=== PATIENT | female | born 1955 ===

== ENCOUNTER 2017-12-25 18:37 | Emergency (ER) | payer BC, OTHER, SELFPAY ==
[2017-12-25 18:37] VITALS: BMI 34.9
[2017-12-25 18:52] VITALS: TEMP 98.7
[2017-12-25 19:16] VITALS: BP 122/77; PULSE 60; RESP 20; O2SAT 97
[2017-12-25] MEDS ORDERED: Bacitracin 500 Units/gm Oint Foilpak UD ONE (20:26)
--- NOTE | 2017-12-25 20:26 | C.PDOC ---
History Of Present Illness 62 year old female presents to the ED complaining of right knee and ankle pain status post fall today. She denies any dizziness, LOC or any other symptoms. Time Seen by Provider: 12/25/17 19:22 Chief Complaint (Nursing): Lower Extremity Problem/Injury History Per: Patient History/Exam Limitations: no limitations Onset/Duration Of Symptoms: Hrs Current Symptoms Are (Timing): Still Present - Knee Description Of Injury: Fell - Ankle/Foot Description Of Injury: Fell Past Medical History Reviewed: Historical Data, Nursing Documentation, Vital Signs Vital Signs: Last Vital Signs Temp 98.7 F 12/25/17 19:14 Pulse 60 12/25/17 19:14 Resp 20 12/25/17 19:14 BP 122/77 12/25/17 19:14 Pulse Ox 97 12/25/17 19:14 - Medical History PMH: Denies: Atrial Fibrillation, CHF, COPD, HTN, Hyperthyroidism, Chronic Kidney Disease Other Surgeries: Hx of surgeries - [facility] Procedures BUNIONECTOMY NEC (05/01/97) D & C NEC (04/28/03) DEBRIDEMENT OF NAIL, NAIL BED OR NAIL FOLD (11/04/13) LEG VARICOS V LIGA-STRIP (12/24/14) LOC EXC BONE LESION NEC (11/18/97) LOCAL EXCIS BREAST LES (04/01/13) OTHER LOCAL DESTRUC SKIN (11/18/97) PERIPH NERV EXCISION NEC (11/18/97) Family History: States: No Known Family Hx - Social History Hx Alcohol Use: No Hx Substance Use: No - Immunization History Hx Influenza Vaccination: No Review Of Systems Except As Marked, All Systems Reviewed And Found Negative. Musculoskeletal: Positive for: Other (right knee and right ankle pain ) Neurological: Negative for: Weakness, Numbness, Dizziness Physical Exam - Physical Exam Appears: Non-toxic, Other (obese) Skin: Warm, Dry Head: Atraumatic, Normacephalic Eye(s): bilateral: Normal Inspection Nose: Normal Oral Mucosa: Moist Neck: Normal ROM Extremity: Tenderness (tenderness to right knee and right lateral malleolus with minimal swelling ), Capillary Refill (normal), No Deformity, Other (superficial abrasion to anterior aspect of right knee. extensive varicose veins to B/L lower extremities ) Pulses: Left Dorsalis Pedis: Normal, Right Dorsalis Pedis: Normal Neurological/Psych: Oriented x3, Normal Speech, Normal Motor, Normal Sensation, Normal Reflexes Gait: Steady ED Course And Treatment O2 Sat by Pulse Oximetry: 97 (RA) Pulse Ox Interpretation: Normal Progress Note: Abrasion cleaned with Bacitracin and Saline. Dressing applied to right knee. GARETH wrap applied to right ankle. Patient refused pain medications. XR images show no fracture, dislocation or acute abnomalities. Patient is ambulatory with minimal limping. 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 - Scribe Statement The provider has reviewed the documentation as recorded by the Lonnieibzahira Bautista All medical record entries made by the Hilaria were at my direction and personally dictated by me. I have reviewed the chart and agree that the record accurately reflects my personal performance of the history, physical exam, medical decision making, and the department course for this patient. I have also personally directed, reviewed, and agree with the discharge instructions and disposition.
--- NOTE | 2017-12-26 08:33 | RAD ---
Date of service: 12/25/2017 PROCEDURE: Right Knee Radiographs. HISTORY: pain, s/p fall COMPARISON: None. FINDINGS: BONES: Normal. No fracture. JOINTS: Medial femoral tibial mild osteoarthritis. JOINT EFFUSION: None. OTHER FINDINGS: Subcutaneous serpiginous densities compatible with varicosities suggested IMPRESSION: No fracture or dislocation. Other findings as above. Comments: No initial ER note provided to agree with or note discrepancy.
--- NOTE | 2017-12-26 08:44 | RAD ---
Date of service: 12/25/2017 PROCEDURE: Right Ankle Radiographs. HISTORY: pain, s/p fall COMPARISON: None FINDINGS: BONES: No fracture line appreciated. JOINTS: . Osteoarthritis. Ankle mortise maintained. 3 mm sclerotic rimmed subchondral subcortical cystic change lateral talar dome-arthro pathic etiology favored. Old trauma and secondary arthrosis not excluded. Medial and lateral arthropathic changes about the ankle SOFT TISSUES: Circumferential subcutaneous reticulated edema and medial subcutaneous serpiginous varicosities suggested. OTHER FINDINGS: None. IMPRESSION: No fracture line appreciated.. No dislocation Cystic and osseous hypertrophic arthropathic changes involving the medial tibial talar joint and tibial-fibular and the confluent lateral talar dome joint. Soft tissue changes as above
== END 2017-12-25 20:49 | disposition home or self-care (01) ==
LOC: C.ER 18:37
DX: S93.401A Sprain of unspecified ligament of right ankle, initial encounter (principal); S80.01XA Contusion of right knee, initial encounter; S80.211A Abrasion, right knee, initial encounter; W19.XXXA Unspecified fall, initial encounter